=== PATIENT | female | born 1960 | race Caucasian/White ===

== ENCOUNTER → 2024-02-19 11:35 | Outpatient (REF) | payer OTHER, SELFPAY | LOC: HWWDC 11:35 | PROVIDERS: ATTENDING PHYSICIAN Family Medicine | DX: Z12.31 Encounter for screening mammogram for malignant neoplasm of breast (principal) | CPT/HCPCS: 77063; 77067 ==

== ENCOUNTER → 2024-02-27 09:46 | Outpatient (REF) | payer OTHER, SELFPAY | LOC: WDC 09:46 | PROVIDERS: ATTENDING PHYSICIAN Family Medicine | DX: R92.8 Other abnormal and inconclusive findings on diagnostic imaging of breast (principal) | CPT/HCPCS: 77065 ==

== ENCOUNTER → 2024-03-04 06:45 | Outpatient (REF) | payer OTHER, SELFPAY ==
--- NOTE | 2024-03-04 12:49 | OID.BR.INTR ---
ROSA MARIAD Breast Navigator - Initial
- -
Date of Contact: 03/04/24
Met with patient. Patient given written information on navigator services available at [facility]. Will follow up as needed per protocol.
== END ==
LOC: WDC 06:45
PROVIDERS: ATTENDING PHYSICIAN Family Medicine
DX: R92.1 Mammographic calcification found on diagnostic imaging of breast (principal)
CPT/HCPCS: 88305; 19081; 76098; A4648